=== PATIENT | male | born 1960 | race Caucasian/White ===

== ENCOUNTER → 2018-05-31 11:41 | Outpatient (CLI) | payer OTHER, SELFPAY ==
[2018-05-31 14:19] LABS: ALB/GLOB Ratio 1.1 RATIO (0.9-2.4); AST(SGOT) 28 U/L (15-37); Alanine Aminotransfer ALT/SGPT 35 U/L (16-61); Albumin, Serum 3.7 g/dL (3.2-5.0); Alkaline Phosphatase 71 U/L (45-117); Anion Gap 9 (5-15); BUN 14 mg/dL (7-18); BUN/Creat Ratio 18.9 RATIO (10-20); Calcium,Total 8.5 mg/dL (8.5-10.1); Chloride 104 mmol/L (98-107); Cholesterol 127 mg/dL (200); Creatinine, Serum 0.74 mg/dL (0.70-1.30); EST Glomerular Filtration Rate 116 mL/min (>60); Est Glom Filt Rate - Afr Amer 140 mL/min (>60); Globulin 3.5 g/dL (2.2-4.2); Glucose 110 mg/dL (74-106); High Density Lipoprotein 38 mg/dL; PSA,Total - Annual Screen 4.85 ng/mL (0.00-4.00); Potassium 3.7 mmol/L (3.5-5.1); Protein, Total 7.2 g/dL (6.4-8.2); Sodium Level 142 mmol/L (136-145); Triglycerides 80 mg/dL; Very Low Density Lipoprotein 16 mg/dL (5-40)
== END ==
PROVIDERS: Family Provider Family Medicine; PCP Family Medicine; Referring Provider Family Medicine; Visit Provider Family Medicine
DX: Z00.00 Encounter for general adult medical examination without abnormal findings (principal)
CPT/HCPCS: 36415; 80053; 80061; 84153; G0103

== ENCOUNTER → 2019-05-12 11:19 | Outpatient (CLI) | payer OTHER, SELFPAY ==
[2019-05-12 10:52] VITALS: BMI 48.5
[2019-05-12 12:41] LABS: Hematocrit 44.5 % (40-54); Hemoglobin 14.6 g/dL (13.0-16.5); Mean Corp Hgb Conc 32.8 g/dL (32-36); Mean Corpuscular Hgb 27.8 pg (27.0-32.0); Mean Corpuscular Volume 84.8 fL (80-94); Mean Platelet Vol. 9.3 fl (6.2-12.0); Platelet Count 203 K/mm3 (150-450); RBC Distribution Width CV 13.9 % (11.6-14.6); RBC Distribution Width SD 42.8 fl (35.1-43.9); Red Blood Count 5.25 M/mm3 (4.6-6.2); White Blood Count 7.3 K/mm3 (4.4-11.0)
[2019-05-12 13:17] LABS: ALB/GLOB Ratio 1.2 RATIO (0.9-2.4); AST(SGOT) 26 U/L (15-37); Alanine Aminotransfer ALT/SGPT 36 U/L (16-61); Albumin, Serum 3.9 g/dL (3.2-5.0); Alkaline Phosphatase 79 U/L (45-117); Anion Gap 7 (5-15); BUN 17 mg/dL (7-18); BUN/Creat Ratio 20.9 RATIO (10-20); Calcium,Total 8.8 mg/dL (8.5-10.1); Chloride 107 mmol/L (98-107); Cholesterol 121 mg/dL (200); Creatinine, Serum 0.81 mg/dL (0.70-1.30); EST Glomerular Filtration Rate 104 mL/min (>60); Est Glom Filt Rate - Afr Amer 125 mL/min (>60); Globulin 3.3 g/dL (2.2-4.2); Glucose 107 mg/dL (74-106); High Density Lipoprotein 42 mg/dL; Potassium 3.7 mmol/L (3.5-5.1); Protein, Total 7.2 g/dL (6.4-8.2); Sodium Level 143 mmol/L (136-145); Thyroid Stim Hormone (TSH) 4.87 uIU/mL (0.358-3.74); Triglycerides 68 mg/dL; Very Low Density Lipoprotein 14 mg/dL (5-40)
[2019-05-17 15:56] LABS: T4 Free Direct 0.99 ng/dL (0.76-1.46)
== END ==
PROVIDERS: Family Provider Family Medicine; PCP Family Medicine; Visit Provider Nurse Practitioner Family
DX: Z00.00 Encounter for general adult medical examination without abnormal findings (principal)
CPT/HCPCS: 36415; 80053; 80061; 84439; 84443; 85027

== ENCOUNTER → 2019-06-13 09:21 | Outpatient (CLI) | payer OTHER, SELFPAY ==
[2019-05-12 10:52] VITALS: BMI 48.5
[2019-06-13 12:30] LABS: PSA,Total - Annual Screen 5.69 ng/mL (0.00-4.00)
== END ==
PROVIDERS: Family Provider Family Medicine; PCP Family Medicine; Visit Provider Nurse Practitioner Family
DX: Z12.5 Encounter for screening for malignant neoplasm of prostate (principal)
CPT/HCPCS: 36415; 84153; G0103

== ENCOUNTER → 2020-06-07 14:04 | Outpatient (CLI) | payer OTHER, SELFPAY ==
[2020-06-07 13:13] VITALS: BMI 49.7
== END ==
PROVIDERS: PCP Family Medicine; Referring Provider Nurse Practitioner Family; Visit Provider Nurse Practitioner Family
DX: Z20.828 Contact with and (suspected) exposure to other viral communicable diseases (principal)
CPT/HCPCS: 36415

== ENCOUNTER → 2020-07-02 14:45 | Outpatient (CLI) | payer OTHER, SELFPAY ==
[2020-06-07 13:13] VITALS: BMI 49.7
--- NOTE | 2020-07-02 | IMM_PTH ---
PATIENT: KARTHIKEYAN MARTIN LOC: [facility] U#:[id number] AGE/SX: 64/M ROOM: RE07/02/[address]: Dr. Roscoe Garcia MD : 1960 BED: DIS: SPEC #: [id number] RECD: 07/05/20 11:38 STATUS: YEFRI REQ #: [id number] DEONNA: 07/02/20 00:[address]: Roscoe Garcia DEPT: IMMUNOHISTOCHEMISTRY RECD BY: Ifrah Alvarez ENTERED: 07/05/20 11:40 SP TYPE: IMMUNO OTHR DR: Dr. Shai Bell DO Tissues: A - PROSTATE RIGHT C - PROSTATE RIGHT D - PROSTATE LEFT F - PROSTATE LEFT Procedures: 34BE12 (add) P40 (add) 34BE12 (initial) PHYSICIAN & INSTITUTION [place] [id number] SPECIMEN INFORMATION: Tissue Source: A - Right apex, C - Right base, D - Left apex, F - Left base Clinical Info: Elevated PSA Specimen Number: [id number] A, C, D & F CPT code: 64060, 11384 x7 METHODOLOGY: Deparaffinized sections of prefer/formalin-fixed tissue or PAP/DQ stained slides are incubated with monoclonal/polyclonal antibodies/oligonucleotide probes. Localization is made via biotin free immunoperoxidase method. Appropriate controls are performed and reacted as expected. Results on target cell population are indicated in the following table: RESULTS: ANTIBODY / CLONE RESULT Block A P40 (BC28) negative 34BE12 (34BE12) negative Block C P40 (BC28) negative 34BE12 (34BE12) negative Block D P40 (BC28) negative 34BE12 (34BE12) negative Block F P40 (BC28) negative 34BE12 (34BE12) negative These tests were developed and their performance characteristics determined by [facility]. They may not have been cleared or approved by the U.[place]. Food and Drug Administration. The FDA has determined that such clearance or approval is not necessary. The above immunohistochemical/dualISH markers are ordered and reviewed by the Pathologist. INTERPRETATION: A. Right prostate, apex, core biopsy: Adenocarcinoma. C. Right prostate, base, core biopsy: Adenocarcinoma. D. Left prostate, apex, core biopsy: Adenocarcinoma. F. Left prostate, base, core biopsy: Adenocarcinoma. Focal atypical small acinar proliferation (SONDRA). SJ:len 07/08/20
--- NOTE | 2020-07-02 14:45 | PROSBIL_PTH ---
PATIENT: KARTHIKEYAN MARTIN LOC: [facility] U#:[id number] AGE/SX: 64/M ROOM: RE07/02/[address]: Dr. Roscoe Garcia MD : 1960 BED: DIS: SPEC #: [id number] RECD: 07/02/20 15:42 STATUS: YEFRI REAmy #: [id number] DEONNA: 07/02/20 14:[address]: Roscoe Garcia DEPT: SURGICAL PATHOLOGY RECD BY: Courtney Castaneda ENTERED: 07/03/20 06:59 SP TYPE: PROST BX KAITLIN DR: Dr. Shai Bell DO Tissues: A - PROSTATE RIGHT B - PROSTATE RIGHT C - PROSTATE RIGHT D - PROSTATE LEFT E - PROSTATE LEFT F - PROSTATE LEFT Procedures: PROSTATE BX HEADER OPERATION: Prostate biopsy PRE-OP DIAGNOSIS: Elevated PSA TISSUE SUBMITTED: A - Right apex, B - Right mid, C - Right base, D - Left apex, E - Left mid, F - Left base MICROSCOPIC DIAGNOSIS A. Right prostate, apex, core biopsy: Prostatic adenocarcinoma. [place] grade: 3+3=6 Number of cores involved: 1/2 Proportion of tissue involved: 10% Perineural invasion: Not identified. Greatest tumor length: 1 mm Focal high-grade prostatic intraepithelial neoplasia (HGPIN). See comment. B. Right prostate, mid, core biopsy: Prostatic adenocarcinoma. [place] grade: 5+4=9 Number of cores involved: 1/2 Proportion of tissue involved: ~15% Perineural invasion: Not identified. Greatest tumor length: 0.4 cm Focal high-grade prostatic intraepithelial neoplasia (HGPIN). C. Right prostate, base, core biopsy: A minute focus of prostatic adenocarcinoma. [place] grade: 4+5=9 Number of cores involved: 1/2 Proportion of tissue involved: <5% Perineural invasion: Not identified. Greatest tumor length: <0.1 cm Focal high-grade prostatic intraepithelial neoplasia (HGPIN). See comment. D. Left prostate, apex, core biopsy: Prostatic adenocarcinoma. [place] grade: 3+3=6 Number of cores involved: 1/1 Proportion of tissue involved: <5% Perineural invasion: Not identified. Greatest tumor length: <0.1 cm Focal high-grade prostatic intraepithelial neoplasia (HGPIN). See comment. E. Left prostate, mid, core biopsy: Prostatic tissue, negative for malignancy. F. Left prostate, base, core biopsy: Prostatic adenocarcinoma. [place] grade: 3+3=6 Number of cores involved: 1/2 Proportion of tissue involved: <5% Perineural invasion: Not identified. Greatest tumor length: 0.4 cm, discontinuous. Focal atypical small acinar proliferation (SONDRA). Focal high-grade prostatic intraepithelial neoplasia (HGPIN). See comment. SJ:len 07/05/20 COMMENT A, C, D & F - Immunohistochemistry ([id number]) supports the above diagnosis. MICROSCOPIC DESCRIPTION Slides are reviewed. GROSS DESCRIPTION A - Received is one container designated prostate, right apex. The specimen consists of two elongated fragments of light alonzo-white soft tissue measuring 0.3 and 0.4 cm in length and 0.1 cm in diameter. The specimen is totally submitted in one cassette. B - Received is one container designated prostate, right mid. The specimen consists of two elongated fragments of light alonzo-white soft tissue measuring 1.7 and 2 cm in length and 0.1 cm in diameter. The specimen is totally submitted in one cassette. C - Received is one container designated prostate, right base. The specimen consists of two elongated fragments of light alonzo-white soft tissue each measuring 1.3 cm in length and 0.1 cm in diameter. The specimen is totally submitted in one cassette. D - Received is one container designated prostate, left apex. The specimen consists of one elongated fragment of light alonzo-white soft tissue measuring 1.8 cm in length and 0.1 cm in diameter. The specimen is totally submitted in one cassette. E - Received is one container designated prostate, left mid. The specimen consists of two elongated fragments of light alonzo-white soft tissue measuring 0.8 and 1 cm in length and 0.1 cm in diameter. The specimen is totally submitted in one cassette. F - Received is one container designated prostate, left base. The specimen consists of two elongated fragments of light alonzo-white soft tissue measuring 1.4 and 1.5 cm in length and 0.1 cm in diameter. The specimen is totally submitted in one cassette. / JOCE:len 07/03/20 TC:0 CPT: 50734 x6
== END ==
PROVIDERS: PCP Family Medicine; Referring Provider Urology; Visit Provider Urology
DX: R97.20 Elevated prostate specific antigen [PSA] (principal)
CPT/HCPCS: 88305; 88341; 88342; G0416

== ENCOUNTER → 2020-07-12 07:16 | Outpatient (CLI) | payer OTHER, SELFPAY ==
[2020-06-07 13:13] VITALS: BMI 49.7
--- NOTE | 2020-07-12 07:18 | CT_ITS ---
STUDY: CT ABDOMEN AND PELVIS WITH CONTRAST REASON FOR EXAM: Male, 59 years old. Prostate cancer newly diagnosed, elevated PSA and frequency, biopsy 1 week ago with hematuria since. Hx hypertension. RADIATION DOSAGE (If Supplied By Facility): CTDIvol = ( 23.72 ) mGy, DLP = ( 1313.40 ) mGycm TECHNIQUE: Transaxial images were obtained from the dome of the diaphragm to the symphysis pubis without oral contrast. IV 100mL Isovue-370 was administered. Sagittal and coronal images were reconstructed. Individualized dose optimization techniques were used for this CT. COMPARISON: None. FINDINGS: Minimal bibasilar atelectasis. Coronary artery calcification. Prior CABG. Normal liver. Normal gallbladder and extrahepatic biliary system. Normal spleen. Normal pancreas. Normal bilateral adrenal glands. Normal right kidney. Normal left kidney. There is a small hiatal hernia. Normal small intestine. There are scattered colonic diverticula consistent with diverticulosis. The appendix is visualized and appears normal. There is scattered atherosclerotic calcification of the abdominal aorta, without a demonstrated aneurysm. Normal inferior vena cava. There is borderline retroperitoneal lymphadenopathy with enlarged nodes no greater than 10mm in the short axis diameter. The urinary bladder is only partially filled. Mild degree of gallbladder wall thickening. The prostate measures 4.4 cm x 5.8 cm. There is a small umbilical hernia containing fat. Small bilateral inguinal hernias containing fat. There are degenerative changes of the visualized lumbar spine. CT/Abdomen/Pelvis WITH Contrast IMPRESSION: Scattered sigmoid diverticula. Prostatic enlargement with indentation of the bladder base. Mild degree of bladder wall thickening. Scattered sigmoid diverticula. Electronically Signed: Tom Zazueta, at 8:54 EST , Service support ,
[2020-07-12 07:31] LABS: CREATININE FINGERSTICK 0.6 mg/dL (0.70-1.30)
== END ==
PROVIDERS: PCP Family Medicine; Referring Provider Urology; Visit Provider Urology
DX: C61 Malignant neoplasm of prostate (principal)
CPT/HCPCS: 74177; Q9967

== ENCOUNTER → 2020-07-15 07:37 | Outpatient (CLI) | payer OTHER, SELFPAY ==
[2020-06-07 13:13] VITALS: BMI 49.7
--- NOTE | 2020-07-15 07:39 | NM_ITS ---
CLINICAL: 51-year-old male with recent diagnosis of primary prostate carcinoma. WHOLE BODY 99m Tc MDP RADIONUCLIDE BONE SCINTIGRAPHY COMPARISON: CT of the abdomen-pelvis report 07/12/2020 FINDINGS: Following the intravenous administration of 26.0 mCi of 99m Tc MDP, whole body bone images reveal: 1. Increased radiopharmaceutical concentration is heterogeneously identified in the third-fifth lumbar vertebra posteriorly on the left and right, right posterior sacrum, the seventh thoracic vertebra posteriorly on the right, bilateral knees, left ankle, left midfoot, mid cervical spine posteriorly on the right, the acromioclavicular and sternoclavicular compartments of both shoulders, bilateral wrists and hands. 2. The remaining skeletal structures are scintigraphically unremarkable with normal-appearing renal images and urinary bladder activity identified. Facilitated uptake is noted in the left maxilla most consistent with periodontal disease and/or periostitis. NM/Bone Scan Whole Body IMPRESSION: 1. The increase in tracer concentration identified in the cervical, thoracic and lumbar spine, sacrum, right and left knees, left ankle, left midfoot, shoulders bilaterally, both wrists, right-left hands is most consistent with degenerative arthritis. 2. There is no definitive typical scintigraphic evidence of diffuse axial skeletal metastatic disease on the current examination. Electronically Signed: Norm Macias DO at 22:14 EST Tel , Service support ,
== END ==
PROVIDERS: PCP Family Medicine; Referring Provider Urology; Visit Provider Urology
DX: C61 Malignant neoplasm of prostate (principal)
CPT/HCPCS: 78306

== ENCOUNTER → 2020-08-27 09:10 | Outpatient (CLI) | payer OTHER, SELFPAY ==
[2020-06-07 13:13] VITALS: BMI 49.7
[2020-08-22 11:04] VITALS: BMI 48.6
[2020-08-27 13:23] LABS: T4 Free Direct 0.94 ng/dL (0.76-1.46); Thyroid Stim Hormone (TSH) 3.21 uIU/mL (0.358-3.74)
== END ==
PROVIDERS: PCP Family Medicine; Referring Provider Nurse Practitioner Family; Visit Provider Nurse Practitioner Family
DX: E03.9 Hypothyroidism, unspecified (principal)
CPT/HCPCS: 36415; 84439; 84443

== ENCOUNTER 2020-09-04 11:49 | Day surgery (SDC) | payer OTHER, SELFPAY ==
[2020-06-07 13:13] VITALS: BMI 49.7
[2020-08-22 11:04] VITALS: BMI 48.6
[2020-09-03 13:22] VITALS: BMI 48.6
--- NOTE | 2020-09-04 10:16 | PCM.HP.STD ---
History of Present Illness Date of Admission: 09/04/20 Chief Complaint: Prostate cancer The patient is a 59 year old male with prostate cancer high risk disease he is elected undergo radiation treatments plus hormone deprivation therapy. Past Medical History Past Medical History (Chronic Problems): Chronic Problems (Last Reviewed 09/03/20 @ 13:22 by Coty Lamb) High cholesterol (Chronic) High blood pressure (Chronic) Heart disease (Chronic) Seasonal allergies (Chronic) Medical History: Medical History (Last Reviewed 09/03/20 @ 13:22 by Coty Lamb) High cholesterol (Chronic) E78.00 High blood pressure (Chronic) I10 Heart disease (Chronic) I51.9 Seasonal allergies (Chronic) J30.2 Hypothyroid E03.9 Prostate cancer C61 Psoriasis L40.9 Allergies No Known Allergies Allergy (Verified 09/03/20 13:23) Home Medications: Ambulatory Orders Medication Instructions Recorded aspirin 81 mg tablet,delayed 81 mg PO DAILY 05/31/18 release isosorbide mononitrate 60 mg 60 mg PO QHS 05/31/18 tablet,extended release 24 hr nitroglycerin 0.4 mg sublingual 0.4 mg SUBLINGUAL Q5-15M PRN 05/31/18 tablet naproxen sodium 220 mg capsule 220 mg PO BID 05/12/19 metoprolol succinate 25 mg 12.5 mg PO BID #90 tab 11/01/19 tablet,extended release 24 hr simvastatin 20 mg tablet 20 mg PO QHS #90 tab 11/01/19 cyclobenzaprine 10 mg tablet 5 - 10 mg PO TID PRN #30 tab 06/07/20 Clobetasol Propionate [Temovate] 15 gm TP BID PRN 08/22/20 Hydrochlorothiazide [Hctz] 25 mg PO QHS 08/29/20 Levothyroxine Sodium [Synthroid] 25 mcg PO QHS 08/29/20 Prasugrel HCl 10 mg PO QHS 08/29/20 Surgical History: Surgical History (Last Reviewed 09/03/20 @ 13:22 by Coty Lamb) History of cardiac cath Z98.890 Stents - OCTOBER 2013 History of open heart surgery Z98.890 Bypass - 05/04/2011 Surgical History: no surgical history Smoking Status: Never smoker Tobacco Use: Non-smoker Review of Systems Constitutional: Denies: Chills, Fever, Weight Change HEENT: Denies: Head Aches, Sinus Congestion, Sinus Drainage Cardiovascular: Denies: Chest Pain, Palpitations Respiratory: Denies: Cough, Shortness of breath at rest, Sputum production Gastrointestinal: Denies: Abdominal Pain, Nausea, Vomiting Genitourinary: Denies: Dysuria Musculoskeletal: Denies: Joint Pain, Joint Tenderness Skin: Denies: Rash, Wounds Neurological: Denies: Numbness, Tingling, Focal weakness Psychiatric: Denies: Anxiety, Depression, Homicidal Ideations, Suicidal Ideations Hematologic/ Lymphatic: Denies: Easy Bruising, Easy Bleeding VTE Information - Inpt Only VTE Present on Admission: No - Physical Exam Vitals/I&O's: Body Mass Index (BMI) 49.7 General: Alert, Oriented x3, Cooperative HEENT: Atraumatic, PERRLA, EOMI, Normocephalic Neck: Supple, No JVD, Negative Carotid Bruits Lungs: Clear to auscultation, Normal air movement Cardiovascular: Regular rate, No murmurs Abdomen: Bowel Sounds Present, Soft, Non Tender Extremities: No edema, Capillary Refill Less than 3 Seconds Skin: No rashes, No breakdown Musculoskeletal: No Tenderness to Palpation of Joints or Extremities Neurological: Cranial nerves II-XII grossly intact Psych/Mental Status: Normal Affect, Appropriate Microbiology Past 72 Hours 09/03/20 09:03 Interface Orders SARS-CoV-2 Antigen (Rapid) - Final Current Medications Cefazolin Sodium 2 gm/ Sodium (Chloride) 110 mls @ 150 mls/hr IV PREOP ONE Stop: 09/04/20 14:43 Assessment/Plan 59-year-old male with prostate cancer, plan the place gold markers for radiation treatment and also spacer organ at risk gel matrix to protect the rectum during radiation.
--- NOTE | 2020-09-04 10:17 | DCINST_ITS ---
Discharge Diet: No Restrictions Discharge Activity: Return to Normal Activity, May Not Drive - for 2 days. Allergies/Adverse Reactions: Allergies No Known Allergies Allergy (Verified 09/03/20 13:23) Medications to take at Discharge aspirin 81 mg tablet,delayed release 81 mg PO DAILY 05/31/18 isosorbide mononitrate 60 mg tablet,extended release 24 hr 60 mg PO QHS 05/31/18 nitroglycerin 0.4 mg sublingual tablet 0.4 mg SUBLINGUAL Q5-15M PRN 05/31/18 naproxen sodium 220 mg capsule 220 mg PO BID 05/12/19 metoprolol succinate 25 mg tablet,extended release 24 hr 12.5 mg PO BID #90 tab 11/01/19 simvastatin 20 mg tablet 20 mg PO QHS #90 tab 11/01/19 cyclobenzaprine 10 mg tablet 5 - 10 mg PO TID PRN #30 tab 06/07/20 Clobetasol Propionate [Temovate] 15 gm TP BID PRN 08/22/20 Hydrochlorothiazide [Hctz] 25 mg PO QHS 08/29/20 Levothyroxine Sodium [Synthroid] 25 mcg PO QHS 08/29/20 Prasugrel HCl 10 mg PO QHS 08/29/20 Primary Care Physician: Shai Bell DO [Primary Care Provider] - Test Results: Test results from this visit will be discussed in further detail at your follow- up appointment, if applicable. Please Follow Up With: Roscoe Garcia MD When: in 2 weeks, please call to make an appointment.
[2020-09-04 12:24] VITALS: BP 109/81; PULSE 79; RESP 16; TEMP 37.4; O2SAT 94; BMI 47.9
[2020-09-04] MEDS: Lactated Ringers 1,000 ML 75 ML IV (12:32)
--- NOTE | 2020-09-04 13:20 | EKG12_ITS ---
Test Reason : PREOP Blood Pressure : / mmHG Vent. Rate : 070 BPM Atrial Rate : 070 BPM P-R Int : 224 ms QRS Dur : 122 ms QT Int : 422 ms P-R-T Axes : 007 032 031 degrees QTc Int : 455 ms Sinus rhythm with 1st degree A-V block Otherwise normal ECG No previous ECGs available Confirmed by DARBY DIEGO, VIOLA ([id number]), industrial editor RAJENDRA PEREZ ([id number]) on 09/10/2020 8:49:12 AM Referred By: Roscoe Garcia Confirmed By:VIOLA PASTOR MD
--- NOTE | 2020-09-04 14:33 | OP.PCM_ITS ---
Report of Operation Date of Procedure: 09/04/20 Pre-Operative Diagnosis: Prostate cancer Post-Operative Diagnosis: Same Surgery/Procedure Performed:: Insertion of gold markers of the prostate. Placement of spacer organ residual matrix Description of Surgical Findings:: Patient was taken back to the operating room, after induction of anesthesia, he was placed in dorsolithotomy position. The patient had a bowel prep preoperatively. He was given IV antibiotics preoperatively. He underwent a timeout procedure. He was marked and the procedure was reviewed with the operating room staff. Once he was in dorsolithotomy position. The genitals and perineum were prepped and draped in the usual sterile fashion. I then introduced a biplanar ultrasound probe into the rectum and performed ultrasonography on the prostate. The prostate seminal vesicles, the base, the mid prostate, the apex were identified. The Denonvilliers' fascia was also identified. I first advanced the first marker in the patient's right side to the mid prostate and deployed the first semiconductor wafers marker. The second semiconductor wafers marker was then advanced under ultrasound guidance to the patient's left mid prostate . And finally the third semiconductor wafers marker was advanced of the prostate left apex and deployed under ultrasound guidance. All 3 markers were confirmed to be present within the prostate on ultrasonography. I then introduced a biplanar ultrasound probe into the rectum and performed ultrasonography and identified the Denonvilliers' fascia the prostate mid base and apex and seminal vesicles. The spacer gel mix was then prepared on the back table per manufactures instruction. Under ultrasound guidance in the midline perineum a bevel needle down we advanced through the perineum below the prostate into the space of Denonvilliers' fascia. This space which could be identified by ultrasound with a bright white layer between the prostate and the rectum. I then injected a puff of normal saline to identify the space further. After I confirmed that the needle was in the correct space in the mid prostate and the space of Denonvilliers' fascia between the rectum and the prostate. Then over the course of 15 seconds the gel matrix was injected slowly there was nice separation between the prostate and the rectum at the gel matrix was injected. The position of the gel matrix was confirmed by ultrasound. Then the injection needle was removed intact. Patient's perineum was cleaned patient was taken out of stirrups and then taken back to the PACU in good condition. Type of Anesthesia:: General
[2020-09-04 14:42] VITALS: BP 109/81; BP 111/62; PULSE 71; RESP 16; TEMP 36.4; O2SAT 95
[2020-09-04 15:00] VITALS: BP 109/81; BP 130/89; PULSE 67; RESP 16; O2SAT 100
[2020-09-04 15:07] VITALS: BP 109/81; BP 137/90; PULSE 69; RESP 16; TEMP 36.3; O2SAT 100
[2020-09-04 15:36] VITALS: BP 109/81
== END 2020-09-04 15:49 | disposition home or self-care (01) ==
LOC: SDC 11:49 → AC 11:50
PROVIDERS: PCP Family Medicine; Referring Provider Urology; Visit Provider Urology
PROC: (CPT 55874; principal; 2020-09-04 14:20)
DX: C61 Malignant neoplasm of prostate (principal); Z20.828 Contact with and (suspected) exposure to other viral communicable diseases; E78.00 Pure hypercholesterolemia, unspecified; E03.9 Hypothyroidism, unspecified; I10 Essential (primary) hypertension; I51.9 Heart disease, unspecified; Z79.82 Long term (current) use of aspirin; Z79.899 Other long term (current) drug therapy
CPT/HCPCS: 55874; 55876; 87426; 93005; C9803; J7120; J2405

== ENCOUNTER 2020-09-11 09:28 | Day surgery (SDC) | payer OTHER, SELFPAY ==
[2020-08-22 11:04] VITALS: BMI 48.6
--- NOTE | 2020-09-11 | COLBX_PTH ---
PATIENT: KARTHIKEYAN MARTIN LOC: [facility] U#:[id number] AGE/SX: 59/M ROOM: RE09/11/[address]: Dr. Last Grijalva MD : 1960 BED: DIS: 09/11/2020 SPEC #: [id number] RECD: 09/11/20 13:02 STATUS: YEFRI DAYO #: [id number] DEONNA: 09/11/20 00:[address]: Last Grijalva DEPT: SURGICAL PATHOLOGY RECD BY: Cisco Barry ENTERED: 09/12/20 12:33 SP TYPE: COLON BX OTHR DR: Dr. Shai Bell, DO Tissues: Descending colon Procedures: Surgery Specimen Level IV HEADER OPERATION: Colonoscopy (MAC) PRE-OP DIAGNOSIS: Rectal bleeding TISSUE SUBMITTED: Descending colon polyp MICROSCOPIC DIAGNOSIS Descending colon polyp, biopsy: Tubular adenoma. Fragments of fecal material. AM:len 09/13/2020 MICROSCOPIC DESCRIPTION Slides are reviewed. GROSS DESCRIPTION Received in fixative is one container labeled with the patient's name and designated descending colon polyp. The specimen consists of multiple irregular fragments of light alonzo soft tissue that in aggregate measure 0.7 x 0.5 x 0.1 cm. The specimen is totally submitted in one cassette. / AM:len 09/12/20 TC:1 CPT: 70698
--- NOTE | 2020-09-11 06:55 | HP_ITS ---
Intake Vital Signs 09/03/20 Height 5 ft 8 in 09/03/20 Weight: 320 lb 09/03/20 BP 145/85 H 09/03/20 Blood Pressure Location Rt brachial 09/03/20 Position Sitting 09/03/20 Respiration 20 H 09/03/20 Pulse 80 09/03/20 Pulse Source Monitor 09/03/20 Temp 98.1 F 09/03/20 Temp Source Temporal 09/03/20 Pulse Oximetry (%) 94 09/03/20 Oxygen Delivery Method room air Intake Visit Reasons: C-Scope Rectal Bleeding & Family History Chief Complaint: c-scope consult Security System Technician Required: No Is patient in pain?: No Allergies No Known Allergies Allergy (Verified 09/03/20 13:23) Medications aspirin 81 mg tablet,delayed release 81 mg PO DAILY 05/31/18 [History Confirmed 09/03/20] isosorbide mononitrate 60 mg tablet,extended release 24 hr 60 mg PO QHS 05/31/18 [History Confirmed 09/03/20] nitroglycerin 0.4 mg sublingual tablet 0.4 mg SUBLINGUAL Q5-15M PRN 05/31/18 [History Confirmed 09/03/20] naproxen sodium 220 mg capsule 220 mg PO BID 05/12/19 [History Confirmed 09/03/20] metoprolol succinate 25 mg tablet,extended release 24 hr 12.5 mg PO BID #90 tab 11/01/19 [Rx Confirmed 09/03/20] simvastatin 20 mg tablet 20 mg PO QHS #90 tab 11/01/19 [Rx Confirmed 09/03/20] cyclobenzaprine 10 mg tablet 5 - 10 mg PO TID PRN #30 tab 06/07/20 [Rx Confirmed 09/03/20] Clobetasol Propionate [Temovate] 15 gm TP BID PRN 08/22/20 [History Confirmed 09/03/20] Hydrochlorothiazide [Hctz] 25 mg PO QHS 08/29/20 [History Confirmed 09/03/20] Levothyroxine Sodium [Synthroid] 25 mcg PO QHS 08/29/20 [History Confirmed 09/03/20] Prasugrel HCl 10 mg PO QHS 08/29/20 [History Confirmed 09/03/20] [facility] Medical History High cholesterol (Chronic) High blood pressure (Chronic) Heart disease (Chronic) Seasonal allergies (Chronic) Hypothyroid (Acute) Prostate cancer (Acute) Psoriasis (Acute) Surgical History History of cardiac cath (Acute) History of open heart surgery (Acute) Family History Mother Colon cancer Heart disease Hypertension Father Prostate cancer High cholesterol CVA (cerebral vascular accident) Social History (Updated 09/04/20 @ 07:[address] Last Grijalva MD) Smoking Status: Never smoker alcohol intake: never substance use type: does not use what type of physical activity do you participate in: none HPI HPI HPI: KARTHIKEYAN MARTIN, is a 59 M who presents to the office today for HPI HPI Surgical H&P: Yes HPI: KARTHIKEYAN MARTIN, is a 59 M who presents to the office today for Rectal bleeding. The patient is undergoing bead placement for radiation for prostate cancer. Radiation oncology requested colonoscopy before radiation was to ensue. The patient had his last colonoscopy in 2016 which was normal. Patient is having rectal bleeding when he wipes and says there is a lot of bright red blood. Patient does have a family history of colon cancer. ROS General General: Yes fatigue; no weight change, appetite, colon cancer, breast cancer or weakness HEENT HEENT: No difficulty swallowing, eye injury, eye surgery, swollen glands or hoarseness Endo Endocrine: Yes thyroid disease; no diabetes mellitus, thyroid cancer, Hair loss, heat intolerance or cold intolerance Skin Skin: Yes rash; no changing moles Breast Breast: No left breast lump, right breast lump, nipple discharge, breast pain, abnormal mammogram, abnormal US or breast enlargement Musc Musculoskeletal: Yes back problems and arthritis; no rheumatoid arthritis, gout or joint pain Cardio Cardiovascular: Yes murmur, heart disease, high blood pressure and heart stent; no pacemaker, atrial fibrillation, heart attack, palpitations, shortness of breat with exertion or chest pain Psych Psychiatric: No depression, anxiety or hearing voices Resp Respiratory: No shortness of breath, Yes sleep apnea, No cough, No COPD, No asthma, No emphysema, No wheezing Gastro Gastrointestinal: No abdominal pain, No nausea or vomiting, No diarrhea, Yes constipation, Yes blood in stool, No acid reflux, No hemorrhoids, No ulcers, No gallbladder problem, No black,tarry stools Javon Hematologic: Yes blood thinners, No blood disorders, No bleeding, No anemia, No blood clots Neuro Neurologic: No system reviewed and no additional complaints, except as docu, No as per HPI, No abnormal walking, No abnormal hearing, No abnormal movements, No abnormal speech, No behavioral changes, No burning sensations, No confusion, No seizure-like activity, No unsteadiness, No dizziness, No localized weakness, No frequent falls, No headache(s), No lack of coordination, No loss of vision, No memory loss, No numbness, No other visual disturbances, No radiating pain, No restless legs, No sensory deficit, No fainting, No tingling, No tremor(s), No weakness, No other Exam Const General: cooperative Orientation: alert, oriented x3 Chest Breast Palpation: No nipple discharge Resp Effort & Inspection: normal respiratory effort Auscultation: clear to auscultation bilaterally Cardio Rate: regular rate Rhythm: regular rhythm Heart Sounds: murmur GI Inspection: non-distended Palpation: soft, nontender Assessment & Plan Problems 1. Rectal bleeding K62.5 Plan The patient is having rectal bleeding especially when wiping. Patient requests his colonoscopy before starting radiation. I will plan for diagnostic colonoscopy. I have asked the patient to stop his blood thinners 2 days before surgery. I explained endoscopy in detail to the patient. I explained the risks including but not limited to stroke or heart attack with anesthesia, perforation of the GI tract, bleeding, infection. I explained that any of these could necessitate further emergency surgery. The patient understands and all questions were answered sufficiently. The patient wishes to proceed with procedure. Last Grijalva MD Pager: [facility] [address] [place] [address], [address] [place] [address] Office: Orders Orders: Colonoscopy Today K62.5 I have re-examined the patient. There are no clinical changes since date of exam.
[2020-09-11 10:19] VITALS: BP 128/84; PULSE 67; RESP 16; TEMP 36.8; O2SAT 94; BMI 47.9
[2020-09-11] MEDS: Lactated Ringers 1,000 ML 100 ML IV (10:23)
[2020-09-11 11:00] VITALS: BP 113/89; BP 128/84; PULSE 60; RESP 16; TEMP 36.3; O2SAT 94
[2020-09-11 11:05] VITALS: BP 114/68; BP 128/84; PULSE 63; RESP 16; O2SAT 95
--- NOTE | 2020-09-11 11:06 | OP.CCLET_ITS ---
09/11/2020 Shai Bell Re : Colonoscopy procedure for Ba Tompkins Dear Dr. Bell This procedure was performed on Friday, September 11, 2020. My impressions and recommendations are as follows: Impressions : - One small polyp in the descending colon, removed with a hot snare. Resected and retrieved. - The examination was otherwise normal on direct and retroflexion views. - Non-bleeding internal hemorrhoids. Recommendations : - Discharge patient to home. - Resume previous diet. - Continue present medications. - Await pathology results. - Repeat colonoscopy in 5 years for surveillance. My findings are described in the full procedure note, which is enclosed. If I can be of further assistance, please feel free to contact me at Doctor phone number(s): , Work: . Sincerely, Last Grijalva MD 09/11/2020 11:05:58 AM This report has been signed electronically.
--- NOTE | 2020-09-11 11:06 | OP.COLON_ITS ---
Patient Name: Ba Tompkins Procedure Date: 09/11/2020 10:21 AM Date of : 1960 Age: 59 Procedure: Colonoscopy Indications: Rectal bleeding Providers: Last Grijalva MD Referring MD: Shai Bell Medicines: Monitored Anesthesia Care Patient Profile: This is a 59 year old male. Refer to note in patient chart for documentation of history and physical. Last Colonoscopy: several years ago. Complications: No immediate complications. Estimated blood loss: Minimal. Procedure: Pre-Anesthesia Assessment: - Prior to the procedure, a History and Physical was performed, and patient medications and allergies were reviewed. The patient's tolerance of previous anesthesia was also reviewed. The risks and benefits of the procedure and the sedation options and risks were discussed with the patient. All questions were answered, and informed consent was obtained. Prior Anticoagulants: The patient has taken no previous anticoagulant or antiplatelet agents. After reviewing the risks and benefits, the patient was deemed in satisfactory condition to undergo the procedure. After I obtained informed consent, the scope was passed under direct vision. Throughout the procedure, the patient's blood pressure, pulse, and oxygen saturations were monitored continuously. The Colonoscope was introduced through the anus and advanced to the cecum, identified by appendiceal orifice and ileocecal valve. The colonoscopy was performed without difficulty. The patient tolerated the procedure well. The quality of the bowel preparation was good. Scope In: 10:42:48 AM Scope Withdrawal Time 0 hours 8 minutes 35 seconds Scope Out: 10:55:35 AM Total Procedure Duration Time 0 hours 12 minutes 47 seconds Findings: A small polyp was found in the descending colon. The polyp was removed with a hot snare. Resection and retrieval were complete. The exam was otherwise without abnormality on direct and retroflexion views. Non-bleeding internal hemorrhoids were found during retroflexion. The hemorrhoids were mild and Grade I (internal hemorrhoids that do not prolapse). Impression: - One small polyp in the descending colon, removed with a hot snare. Resected and retrieved. - The examination was otherwise normal on direct and retroflexion views. - Non-bleeding internal hemorrhoids. Recommendation: - Discharge patient to home. - Resume previous diet. - Continue present medications. - Await pathology results. - Repeat colonoscopy in 5 years for surveillance. Procedure Code(s): --- Professional --- 72692, Colonoscopy, flexible; with removal of tumor(s), polyp(s), or other lesion(s) by snare technique Diagnosis Code(s): --- Professional --- D12.4, Benign neoplasm of descending colon K64.0, First degree hemorrhoids K62.5, Hemorrhage of anus and rectum CPT copyright 2017 [employer]. All rights reserved. The codes documented in this report are preliminary and upon asphalt tile floor layer review may be revised to meet current compliance requirements. Last Grijalva MD 09/11/2020 11:05:58 AM This report has been signed electronically. Number of Addenda: 0 Note Initiated On: 09/11/2020 10:21 AM
[2020-09-11 11:10] VITALS: BP 114/65; BP 128/84; PULSE 66; RESP 16; O2SAT 93
[2020-09-11 11:15] VITALS: BP 110/65; BP 128/84; PULSE 66; RESP 16; TEMP 36.7; O2SAT 96
[2020-09-11 11:42] VITALS: BP 128/84
== END 2020-09-11 11:54 | disposition home or self-care (01) ==
LOC: EN 09:29 → AC 09:29
PROVIDERS: PCP Family Medicine; Referring Provider Family Medicine; Visit Provider Surgery
PROC: 0DJD8ZZ Inspection of Lower Intestinal Tract, Via Natural or Artificial Opening Endoscopic (ICD-10-PCS; CPT 45378; principal; 2020-09-11 10:40)
DX: K62.5 Hemorrhage of anus and rectum (principal); D12.4 Benign neoplasm of descending colon; K64.0 First degree hemorrhoids; I10 Essential (primary) hypertension; E78.00 Pure hypercholesterolemia, unspecified; E03.9 Hypothyroidism, unspecified; I51.9 Heart disease, unspecified; L40.9 Psoriasis, unspecified; Z79.82 Long term (current) use of aspirin; Z79.899 Other long term (current) drug therapy; Z85.46 Personal history of malignant neoplasm of prostate; G47.30 Sleep apnea, unspecified
CPT/HCPCS: 45385; 88305; J7120

== ENCOUNTER → 2020-09-13 06:13 | Outpatient (CLI) | payer OTHER, SELFPAY ==
[2020-08-22 11:04] VITALS: BMI 48.6
[2020-09-04 12:24] VITALS: BMI 47.9
[2020-09-11 10:19] VITALS: BMI 47.9
--- NOTE | 2020-09-13 06:00 | RAD_ITS ---
STUDY: X-RAY - ORBITS REASON FOR EXAM: Male, 59 years old. CLEARANCE FOR MRI TECHNIQUE: 2 view(s) of the orbits were obtained. COMPARISON: None. FINDINGS: Normal radiographic appearance of the bilateral orbits without a metallic orbital foreign body. Dental amalgams are present. There is no displaced facial bone fractures identified. No air-fluid levels within the visualized paranasal sinuses. RAD/Orbits for Foreign Body IMPRESSION: No demonstrated metallic orbital foreign body. No displaced facial bone fracture identified. Electronically Signed: Trevin Montana MD at 6:58 EST Tel , Service support ,
--- NOTE | 2020-09-13 06:15 | MRI_ITS ---
STUDY: MR PELVIS WITHOUT CONTRAST REASON FOR EXAM: Male, 59 years old. treatment planning, PROSTATE CA TECHNIQUE: Standardized fat and water weighted pulse sequences were obtained in all 3 orthogonal planes. COMPARISON: None. FINDINGS: This is a focus dedicated treatment planning scan with limited diagnostic information. There is a spacer between the rectum and prostate. Bladder is decompressed and suboptimally evaluated. Lower pelvic lymph nodes are normal. Perirectal space is clear. MRI/Pelvis (Routine) IMPRESSION: Treatment planning scan. Electronically Signed: Lee Ann Mena MD at 16:15 EST Tel , Service support ,
--- NOTE | 2020-09-13 07:01 | RAD_ITS ---
STUDY: X-RAY CHEST REASON FOR EXAM: Male, 59 years old. Pt. is here for an MRI, states that he had open heart in 2010, at that time they put in a small pacemaker and says he thought they left leads in, stents 2013 TECHNIQUE: Single AP portable view of the chest. COMPARISON: None. FINDINGS: The lungs are clear and expanded. There is no demonstrated pleural abnormality. Sternal cerclage wires and vascular clips are present from a prior sternotomy and coronary artery bypass graft procedure (CABG). Linear metallic wire is seen overlying the left infrahilar region and left medial lung base suggestive of possible leads from a prior pericardial pacemaker. No pacing device is seen. Normal mediastinum and megan. Normal visualized pulmonary arteries. Normal visualized aortic arch and descending thoracic aorta. There are diffuse degenerative changes of the visualized thoracic spine. Normal visualized ribs, clavicles, and shoulders. There is no demonstrated abnormality of the visualized soft tissue structures of the upper abdomen. RAD/Chest 1 View IMPRESSION: Status post CABG. Findings suggestive of residual pacemaker wires as described. No pacemaker device is seen. Electronically Signed: Tom Zazueta MD at 8:06 EST , Service support ,
== END ==
PROVIDERS: PCP Family Medicine; Referring Provider Student in an Organized Health Care Education/Training Program; Visit Provider Student in an Organized Health Care Education/Training Program
DX: C61 Malignant neoplasm of prostate (principal)
CPT/HCPCS: 70030; 71045; 72195

== ENCOUNTER → 2020-11-01 08:47 | Outpatient (CLI) | payer OTHER, SELFPAY ==
[2020-10-31 13:03] VITALS: BMI 48.6; BMI 49.0
--- NOTE | 2020-11-01 08:53 | RAD_ITS ---
STUDY: X-RAY - RIGHT SHOULDER REASON FOR EXAM: Right shoulder pain, no specific injury. TECHNIQUE: 4 view(s) of the shoulder. COMPARISON: None. FINDINGS: Normal glenohumeral articulation. There are small marginal osteophytes of the acromioclavicular joint. Normal acromion. Normal humeral head and visualized proximal humerus. There is calcific tendinitis. Normal visualized pulmonary apex. RAD/Shoulder min 2 Views IMPRESSION: Calcific tendinitis. Mild acromioclavicular arthrosis. Electronically Signed: Neftali Dubon MD at 13:09 EDT Tel , Service support ,
== END ==
PROVIDERS: PCP Family Medicine; Referring Provider Nurse Practitioner Family; Visit Provider Nurse Practitioner Family
DX: M25.511 Pain in right shoulder (principal)
CPT/HCPCS: 73030

== ENCOUNTER → 2021-04-23 08:02 | Outpatient (CLI) | payer OTHER, SELFPAY ==
[2020-11-25 08:33] VITALS: BMI 49.3
[2021-04-23 10:55] LABS: Absolute Lymphocyte Count 0.82 X10^3/uL (0.83-4.51); Absolute Neutrophil Count 4.5 X10^3/uL (2.0-7.7); Basophil# 0.03 X10^3/uL; Basophil% 0.5 % (0-1); Eosinophil# 0.15 X10^3/uL; Eosinophils% 2.5 % (0-5); Hematocrit 42.5 % (40-54); Hemoglobin 13.5 g/dL (13.0-16.5); Lymphocyte # 0.82 X10^3/ul (0.83-4.51); Lymphocyte % 13.5 % (19-41); Mean Corp Hgb Conc 31.8 g/dL (32-36); Mean Corpuscular Hgb 27.4 pg (27.0-32.0); Mean Corpuscular Volume 86.2 fL (80-94); Mean Platelet Vol. 9.2 fl (6.2-12.0); Monocyte# 0.57 X10^3/uL; Monocyte% 9.4 % (0-10); NRBC Flagged by Analyzer 0 % (0-5); Neutrophil # 4.49 X10^3/uL (2.7-7.7); Neutrophil % 73.8 % (47-70); Platelet Count 235 K/mm3 (150-450); Red Blood Count 4.93 M/mm3 (4.6-6.2); White Blood Count 6.1 K/mm3 (4.4-11.0)
[2021-04-23 11:15] LABS: PSA,Total- Diagnostic 0.06 ng/mL (0.0-4.0)
[2021-04-23 11:30] LABS: AST(SGOT) 23 U/L (15-37); Alanine Aminotransfer ALT/SGPT 36 U/L (16-61); Albumin, Serum 3.6 g/dL (3.2-5.0); Alkaline Phosphatase 84 U/L (45-117); Anion Gap 7 (5-15); BUN 17 mg/dL (7-18); BUN/Creat Ratio 22.7 RATIO (10-20); Calcium,Total 9.2 mg/dL (8.5-10.1); Chloride 107 mmol/L (98-107); Cholesterol 140 mg/dL (200); Creatinine, Serum 0.75 mg/dL (0.70-1.30); EST Glomerular Filtration Rate 113 mL/min (>60); Est Glom Filt Rate - Afr Amer 137 mL/min (>60); Globulin 3.6 g/dL (2.2-4.2); Glucose 96 mg/dL (74-106); High Density Lipoprotein 44 mg/dL; Potassium 4.7 mmol/L (3.5-5.1); Protein, Total 7.2 g/dL (6.4-8.2); Sodium Level 142 mmol/L (136-145); Thyroid Stim Hormone (TSH) 3.85 uIU/mL (0.358-3.74); Triglycerides 140 mg/dL; Very Low Density Lipoprotein 28 mg/dL (5-40)
[2021-04-23 12:18] LABS: Hemoglobin A1c 6.4 % (3.8-5.6)
[2021-04-24 15:59] LABS: PSA, Total <0.1 ng/mL (0.0-4.0)
== END ==
PROVIDERS: Nurse Practitioner Family; Student in an Organized Health Care Education/Training Program; PCP Family Medicine; Referring Provider Urology; Visit Provider Urology
DX: Z00.00 Encounter for general adult medical examination without abnormal findings (principal); C61 Malignant neoplasm of prostate
CPT/HCPCS: 36415; 80053; 80061; 83036; 84153; 84443; 85025

== ENCOUNTER → 2021-07-25 09:44 | Outpatient (CLI) | payer OTHER, SELFPAY ==
[2020-11-25 08:33] VITALS: BMI 49.3
[2021-07-25 12:53] LABS: Thyroid Stim Hormone (TSH) 2.22 uIU/mL (0.358-3.74)
== END ==
PROVIDERS: PCP Family Medicine; Visit Provider Nurse Practitioner Family
DX: E11.9 Type 2 diabetes mellitus without complications (principal); E03.9 Hypothyroidism, unspecified
CPT/HCPCS: 36415; 83036; 84443

== ENCOUNTER 2021-09-16 11:00 | Outpatient (CLI) | payer OTHER, SELFPAY ==
[2020-11-25 08:33] VITALS: BMI 49.3
[2021-09-16 13:01] LABS: PSA,Total- Diagnostic < 0.01 ng/mL (0.0-4.0)
== END 2021-09-16 23:59 | disposition home or self-care (01) ==
LOC: BIMLAB 11:01
PROVIDERS: PCP Family Medicine; Referring Provider Urology; Visit Provider Urology
DX: C61 Malignant neoplasm of prostate (principal)
CPT/HCPCS: 36415; 84153

== ENCOUNTER → 2022-05-01 | Outpatient (CLI) | payer OTHER, SELFPAY ==
[2020-11-25 08:33] VITALS: BMI 49.3
== END | disposition home or self-care (01) ==
LOC: BIMLAB 07:59
PROVIDERS: PCP Family Medicine; Referring Provider Nurse Practitioner Family; Visit Provider Nurse Practitioner Family
DX: Z00.00 Encounter for general adult medical examination without abnormal findings (principal)
CPT/HCPCS: 36415

== ENCOUNTER → 2022-06-03 | Outpatient (CLI) | payer OTHER, SELFPAY ==
[2020-11-25 08:33] VITALS: BMI 49.3
--- NOTE | 2022-06-03 13:36 | ECHOCS_ITS ---
Reason For Study: S/P CABG Procedure This was a 2D Doppler, Color Flow transthoracic echocardiogram. The study was technically difficult. Contrast injection was performed. Exam performed in department. Left Ventricle Normal LV size. Mild concentric left ventricular hypertrophy. Left ventricular systolic function is normal. The estimated ejection fraction is 55 %. Stage 2 diastolic dysfunction. No regional wall motion abnormalities noted. Right Ventricle Normal RV size. Normal systolic function. Atria Normal left atrium. Normal right atrium. Mitral Valve Normal mitral valve. Tricuspid Valve Normal tricuspid valve. Aortic Valve Trisinus/trileaflet aortic valve. Pulmonic Valve The pulmonic valve is not well visualized. Great Vessels Mildly dilated aortic root. The pulmonary artery is normal size. Normal inferior vena cava. Pericardium/Pleural No pericardial effusion. Medication 22 gauge I.V. with prn adaptor inserted into right arm. Diluted definity 2ml given slow IV push to enhance endocardial definition. MMode/2D Measurements & Calculations LVIDd: 4.4 cm IVSd: 1.5 cm Ao root diam: 4.3 cm LVIDs: 2.0 cm LVPWd: 1.3 cm FS: 54.9 % LAV(MOD-sp4): 58.9 ml LVAd ap4: 42.0 cm2 SV(MOD-sp4): 79.9 ml LVLd ap4: 9.4 cm EDV(MOD-sp4): 154.3 ml EDV(sp4-el): 159.0 ml LVAs ap4: 27.5 cm2 LVLs ap4: 8.4 cm ESV(MOD-sp4): 74.4 ml ESV(sp4-el): 76.6 ml EF(MOD-sp4): 51.8 % EF(sp4-el): 51.8 % SV(sp4-el): 82.4 ml LA A4 area: 19.0 cm2 LA dimension(2D): 4.7 cm RA A4 area: 14.4 cm2 Time Measurements MV dec time: 0.16 sec Doppler Measurements & Calculations MV E max mack: 85.8 cm/sec Lat Peak E' Mack: 11.0 cm/sec Med Peak E' Mack: 9.0 cm/sec MV A max mack: 53.2 cm/sec E/E' lat: 7.8 E/E' med: 9.5 MV E/A: 1.6 MV V2 max: 83.9 cm/sec MV dec slope: 526.7 cm/sec2 Ao V2 max: 127.8 cm/sec MV max P.8 mmHg Ao max P.5 mmHg MV V2 mean: 42.4 cm/sec Ao V2 mean: 92.3 cm/sec MV mean P.88 mmHg Ao mean P.9 mmHg MV V2 VTI: 24.8 cm Ao V2 VTI: 27.2 cm LV V1 max: 94.8 cm/sec PA V2 max: 103.5 cm/sec LV V1 max P.6 mmHg PA V2 mean: 68.9 cm/sec LV V1 mean P.7 mmHg LV V1 mean: 60.4 cm/sec LV V1 VTI: 17.9 cm ECHO/Echo Complete W/ Contrast Interpretation Summary Normal LV size. Left ventricular systolic function is normal. The estimated ejection fraction is 55 %. Mildly dilated aortic root. Stage 2 diastolic dysfunction. Mild concentric left ventricular hypertrophy. Contrast injection was performed. Ordering Physician: Lorne Chavez Referring Physician: Lorne Chavez Performed By: Briana Galloway RCS
== END | disposition home or self-care (01) ==
PROVIDERS: PCP Family Medicine; Referring Provider Internal Medicine Cardiovascular Disease; Visit Provider Internal Medicine Cardiovascular Disease
DX: Z95.1 Presence of aortocoronary bypass graft (principal)
CPT/HCPCS: 93306; Q9957; A4216; C8929

== ENCOUNTER → 2022-06-19 | Outpatient (CLI) | payer OTHER, SELFPAY ==
[2020-11-25 08:33] VITALS: BMI 49.3
[2022-06-19 16:57] LABS: PSA,Total- Diagnostic < 0.01 ng/mL (0.0-4.0)
== END | disposition home or self-care (01) ==
PROVIDERS: PCP Family Medicine; Referring Provider Urology; Visit Provider Urology
DX: C61 Malignant neoplasm of prostate (principal)
CPT/HCPCS: 36415; 84153

== ENCOUNTER → 2022-06-19 | Outpatient (CLI) | payer OTHER, SELFPAY ==
[2020-11-25 08:33] VITALS: BMI 49.3
--- NOTE | 2022-06-19 15:47 | VDLE_ITS ---
Reason For Study: Swelling RIGHT LEFT CFV is compressible, spontaneous, phasic, GSV is normal. competent and demonstrates normal Acute deep vein thrombosis is noted in the augmentation. CFV, FV, PopV, T/P Trunk, PTV and PeroV. Procedure This is a venous duplex using B-mode, color flow and spectral Doppler. Exam performed in department. A preliminary report was called and/or faxed to [facility]. VL/Venous Duplex US, Unilateral Interpretation Summary Acute deep venous thrombosis left common femoral, femoral, popliteal, tibialper jj trunk, posterior tibial and peroneal veins. Patent, compressible left great saphenous vein Normal flow patterns right common femoral vein. Ordering Physician: [facility] Majano Referring Physician: Sunny Bell M.D. Performed By: Shonda Garrison RVT
== END | disposition home or self-care (01) ==
LOC: CVS 15:47
PROVIDERS: PCP Family Medicine; Referring Provider Nurse Practitioner Family; Visit Provider Nurse Practitioner Family
DX: M79.89 Other specified soft tissue disorders (principal)
CPT/HCPCS: 93971

== ENCOUNTER → 2022-07-03 | Outpatient (CLI) | payer OTHER, SELFPAY ==
[2020-11-25 08:33] VITALS: BMI 49.3
--- NOTE | 2022-07-03 06:44 | CT_ITS ---
STUDY: CT ABDOMEN AND PELVIS WITH CONTRAST REASON FOR EXAM: Male, 61 years old. Acute LLE DVT RADIATION DOSAGE (If Supplied By Facility): CTDIvol = ( 20.40 ) mGy, DLP = ( 1517.10 ) mGycm TECHNIQUE: Transaxial images were obtained from the dome of the diaphragm to the symphysis pubis with oral contrast. ; IV 100mL [id number]-[id number] was administered. Sagittal and coronal images were reconstructed. Individualized dose optimization techniques were used for this CT. COMPARISON: July 12, 2020 FINDINGS: The visualized lung bases are unremarkable. There are sternotomy wires. There are coronary artery calcifications There is hepatomegaly with diffuse hepatic enlargement. There is a solitary gallstone. Normal spleen. Normal pancreas. Normal bilateral adrenal glands. Normal right kidney. Normal left kidney. Normal visualized stomach. Normal small intestine. Normal colon. The appendix is visualized and appears normal. There is diffuse atherosclerotic calcification of the abdominal aorta, without a demonstrated aneurysm. Normal inferior vena cava. Normal retroperitoneum. Normal urinary bladder. There are metallic densities in the prostate gland. There is no free fluid in the abdomen or pelvis. Normal abdominal wall. There are diffuse degenerative changes of the visualized lumbar spine. There is grade 1 spondylolisthesis at L4-5. There is filling defect of the left common femoral vein consistent with thrombosis. CT/Abdomen/Pelvis WITH Contrast IMPRESSION: Gallstone. Hepatomegaly. No biliary dilatation. No obstruction. Left lower extremity deep venous thrombosis. Electronically Signed: Rayo Marie MD at 9:34 EST ,
[2022-07-03 09:06] LABS: CREATININE FINGERSTICK < 0.9 mg/dL (0.70-1.30); EGFR FINGERSTICK > 60.0000 mL/min (>60)
== END | disposition home or self-care (01) ==
PROVIDERS: PCP Family Medicine; Visit Provider Nurse Practitioner Family
DX: M79.89 Other specified soft tissue disorders (principal); I82.402 Acute embolism and thrombosis of unspecified deep veins of left lower extremity; C61 Malignant neoplasm of prostate
CPT/HCPCS: 74177; Q9967

== ENCOUNTER → 2022-10-09 | Outpatient (CLI) | payer OTHER, SELFPAY ==
[2020-11-25 08:33] VITALS: BMI 49.3
[2022-10-09 12:42] LABS: Anion Gap 8 (5-15); BUN 21 mg/dL (7-18); BUN/Creat Ratio 27.7 RATIO (10-20); Calcium,Total 9.2 mg/dL (8.5-10.1); Chloride 103 mmol/L (98-107); Creatinine, Serum 0.76 mg/dL (0.70-1.30); EST Glomerular Filtration Rate 111 mL/min (>60); Est Glom Filt Rate - Afr Amer 135 mL/min (>60); Glucose 106 mg/dL (74-106); Potassium 4.1 mmol/L (3.5-5.1); Sodium Level 140 mmol/L (136-145)
== END | disposition home or self-care (01) ==
LOC: BIMLAB 07:58
PROVIDERS: PCP Family Medicine; Referring Provider Nurse Practitioner Family; Visit Provider Nurse Practitioner Family
DX: E87.6 Hypokalemia (principal)
CPT/HCPCS: 36415; 80048

== ENCOUNTER → 2022-12-22 | Outpatient (CLI) | payer OTHER, SELFPAY ==
[2020-11-25 08:33] VITALS: BMI 49.3
[2022-12-22 13:07] LABS: PSA,Total- Diagnostic < 0.01 ng/mL (0.0-4.0)
== END | disposition home or self-care (01) ==
PROVIDERS: Urology; PCP Family Medicine; Visit Provider Registered Nurse
DX: C61 Malignant neoplasm of prostate (principal)
CPT/HCPCS: 36415; 84153

== ENCOUNTER → 2023-01-13 | Outpatient (CLI) | payer OTHER, SELFPAY ==
[2020-11-25 08:33] VITALS: BMI 49.3
[2023-01-13 14:25] LABS: Microalbumin,Random Urine 11.1 mg/L (NO RANGE EST.)
[2023-01-13 14:29] LABS: Anion Gap 6 (5-15); BUN 18 mg/dL (7-18); BUN/Creat Ratio 25.2 RATIO (10-20); Calcium,Total 9.3 mg/dL (8.5-10.1); Chloride 106 mmol/L (98-107); Cholesterol 130 mg/dL (200); Creatinine, Serum 0.72 mg/dL (0.70-1.30); EST Glomerular Filtration Rate 119 mL/min (>60); Est Glom Filt Rate - Afr Amer 144 mL/min (>60); Glucose 92 mg/dL (74-106); High Density Lipoprotein 42 mg/dL; Potassium 3.6 mmol/L (3.5-5.1); Sodium Level 139 mmol/L (136-145); Thyroid Stim Hormone (TSH) 1.57 uIU/mL (0.358-3.74); Triglycerides 69 mg/dL; Very Low Density Lipoprotein 14 mg/dL (5-40)
[2023-01-13 15:43] LABS: Hemoglobin A1c 5.5 % (3.8-5.6)
== END | disposition home or self-care (01) ==
LOC: BIMLAB 10:22
PROVIDERS: PCP Family Medicine; Visit Provider Nurse Practitioner Family
DX: E87.6 Hypokalemia (principal); E11.9 Type 2 diabetes mellitus without complications; E78.5 Hyperlipidemia, unspecified
CPT/HCPCS: 36415; 80048; 80061; 82043; 82570; 83036; 84443

== ENCOUNTER 2023-06-04 06:23 | Day surgery (SDC) | payer OTHER, SELFPAY ==
[2020-11-25 08:33] VITALS: BMI 49.3
[2023-06-04 06:52] VITALS: BP 133/76; PULSE 74; RESP 16; TEMP 36.2; O2SAT 96; BMI 43.2
[2023-06-04] MEDS: Lactated Ringers 1,000 ML 15 ML IV (06:57)
[2023-06-04 07:14] LABS: Bedside Glucose 89 mg/dL (74-106)
--- NOTE | 2023-06-04 07:43 | PCM.HP.BLA ---
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 Is patient in pain?: No Allergies No Known Allergies Allergy (Verified 04/29/23 08:05) Medications nitroglycerin 0.4 mg sublingual tablet 0.4 mg sublingual Q5-15M PRN Cardiac/Chest Pain 05/31/18 [History Confirmed 04/29/23] blood sugar diagnostic (FreeStyle Test strips) #50 ea 04/25/21 [Rx Confirmed 04/29/23] blood-glucose meter (FreeStyle System Kit) #1 ea 04/25/21 [Rx Confirmed 04/29/23] lancets 28 gauge (FreeStyle Lancets) #50 ea 04/25/21 [Rx Confirmed 04/29/23] apixaban 5 mg tablet (Eliquis) See Rx Instructions .Route .COMPLEX #180 tabs 12/04/22 [Rx Confirmed 04/29/23] ezetimibe 10 mg tablet 10 mg PO DAILY #90 tabs 12/04/22 [Rx Confirmed 04/29/23] hydrochlorothiazide 25 mg tablet See Rx Instructions .Route .COMPLEX #90 tabs 12/04/22 [Rx Confirmed 04/29/23] isosorbide mononitrate 60 mg tablet,extended release 24 hr See Rx Instructions PO BID #90 tabs 12/04/22 [Rx Confirmed 04/29/23] levothyroxine 50 mcg tablet See Rx Instructions .Route .COMPLEX #90 tabs 12/04/22 [Rx Confirmed 04/29/23] prasugrel 10 mg tablet See Rx Instructions .Route .COMPLEX #90 TABLETS 12/04/22 [Rx Confirmed 04/29/23] metoprolol succinate 25 mg tablet,extended release 24 hr See Rx Instructions .Route .COMPLEX #90 tabs 12/24/22 [Rx Confirmed 04/29/23] clobetasol 0.05 % topical ointment 15 g topical BID PRN Itching #60 grams 01/13/23 [Rx Confirmed 04/29/23] empagliflozin 25 mg tablet (Jardiance) 25 mg PO DAILY 04/20/23 [History Confirmed 04/29/23] PFSH Medical History (Updated 04/29/23 @ 08:01 by Coty Lamb) Atherosclerosis of coronary artery without angina pectoris Blood in stool Deep vein thrombosis of left lower extremity Essential hypertension History of COVID-19 Hyperlipidemia Hypokalemia Hypothyroid Hypothyroidism Ischemic cardiomyopathy Morbid obesity Old inferior wall myocardial infarction Prostate cancer Psoriasis Seasonal allergies Swelling of left lower extremity Type 2 diabetes mellitus Surgical History H/O coronary artery bypass surgery (05/04/11) History of cardiac cath History of coronary artery stent placement (10/26/14) History of left heart catheterization (11/21/20) History of open heart surgery Family History Mother Colon cancer Heart disease HypertensionFather Prostate cancer High cholesterol CVA (cerebral vascular accident) Social History Smoking Status: Never smoker alcohol intake: never substance use type: does not use what type of physical activity do you participate in: none HPI HPI HPI: Patient is a 62-year-old male here for intermittent rectal bleeding. He says this happens every now and then but when it does happen it is bright red. He does not have any pain when this happens. He has last colonoscopy in 2019 which was normal. He was sent here for colonoscopy to evaluate the rectal bleeding. ROS General General: Yes weight change; No appetite, fatigue, colon cancer, breast cancer or weakness HEENT HEENT: No difficulty swallowing, eye injury, eye surgery, swollen glands or hoarseness Endo Endocrine: Yes thyroid disease and diabetes mellitus; No thyroid cancer, Hair loss, heat intolerance or cold intolerance Skin Skin: Yes rash; No changing moles Breast Breast: No left breast lump, right breast lump, nipple discharge, breast pain, abnormal mammogram, abnormal US or breast enlargement Musc Musculoskeletal: Yes back problems; No arthritis, rheumatoid arthritis, gout or joint pain Cardio Cardiovascular: Yes heart disease, high blood pressure and heart stent; No murmur, pacemaker, atrial fibrillation, heart attack, palpitations, shortness of breat with exertion or chest pain Psych Psychiatric: No depression, anxiety or hearing voices Resp Respiratory: No shortness of breath, Yes sleep apnea, No cough, No COPD, No asthma, No emphysema and No wheezing Gastro Gastrointestinal: No abdominal pain, No nausea or vomiting, No diarrhea, No constipation, Yes blood in stool, No acid reflux, Yes hemorrhoids, No ulcers, No gallbladder problem and No black,tarry stools Javon Hematologic: Yes blood thinners, No blood disorders, No bleeding, No anemia and Yes blood clots Neuro Neurologic: No system reviewed and no additional complaints, except as documented, No as per HPI, No abnormal gait, No abnormal hearing, No abnormal movements, No abnormal speech, No behavioral changes, No burning sensations, No confusion, No convulsions, No disequilibrium, No dizziness, No localized weakness, No frequent falls, No headache(s), No lack of coordination, No loss of vision, No memory loss, No numbness, No other visual disturbances, No radicular pain, No restless legs, No sensory deficit, No syncope, No tingling, No tremor(s), No weakness and No other Exam Const General: cooperative Orientation: alert and oriented x3 [facility] Head: normal to inspection Neck Neck: normal visual inspection and full ROM Chest Chest palpation & inspection: normal inspection of the chest Resp Effort & Inspection: normal respiratory effort Auscultation: clear to auscultation bilaterally Cardio Rate: regular rate Rhythm: regular rhythm GI Inspection: non-distended Palpation: soft and nontender Skin General: no rashes or lesions noted Neuro General: patient alert and patient oriented x3 Extrem General: full ROM Psych Appearance: grossly normal Mental Status: mental status grossly normal Assessment and Plan Assessment and Plan (1) Rectal bleeding: Status: Acute Comment: Colonoscopy was negative in 2020. Plan: Patient is having rectal bleeding and oncology sending her here for repeat colonoscopy. He has had a history of pelvic radiation for prostate cancer. He is also on Brilinta and Effient. I will ask Dr. Go if he can stop his blood thinners temporarily for surgery. I explained endoscopy in detail to the patient. I explained the risks including but not limited to stroke or heart attack with anesthesia, perforation of the GI tract, bleeding, infection. I explained that any of these could necessitate further emergency surgery. The patient understands and all questions were answered sufficiently. The patient wishes to proceed with procedure. Last Grijalva MD Pager: [facility] [address] [place] [address], [address] [place] [phone] Office: I have examined the patient and the H&P has been reviewed. There are no clinical changes since date of exam.
[2023-06-04 08:12] VITALS: BP 133/76; BP 96/62; PULSE 60; RESP 16; TEMP 36.7; O2SAT 95
[2023-06-04 08:20] VITALS: BP 133/76; BP 98/71; PULSE 59; RESP 16; O2SAT 97
--- NOTE | 2023-06-04 08:20 | OP.CCLET_ITS ---
06/04/2023 Shai Bell Re : Colonoscopy procedure for Ba Tompkins Dear Dr. Bell This procedure was performed on Sunday, June 04, 2023. My impressions and recommendations are as follows: Impressions : - The entire examined colon is normal on direct and retroflexion views. - No specimens collected. Recommendations : - Discharge patient to home. - Resume previous diet. - Continue present medications. - Repeat colonoscopy in 10 years for screening purposes. My findings are described in the full procedure note, which is enclosed. If I can be of further assistance, please feel free to contact me at Doctor phone number(s): , Work: . Sincerely, Last Grijalva MD 06/04/2023 8:20:29 AM This report has been signed electronically.
--- NOTE | 2023-06-04 08:20 | OP.COLON_ITS ---
Patient Name: Ba Tompkins Procedure Date: 06/04/2023 7:53 AM Date of : 1960 Age: 62 Procedure: Colonoscopy Indications: Rectal bleeding Providers: Last Grijalva MD Medicines: Monitored Anesthesia Care Patient Profile: This is a 62 year old male. Refer to note in patient chart for documentation of history and physical. Last Colonoscopy: more than 3 years ago. Complications: No immediate complications. Procedure: Pre-Anesthesia Assessment: - Prior to the procedure, a History and Physical was performed, and patient medications and allergies were reviewed. The patient's tolerance of previous anesthesia was also reviewed. The risks and benefits of the procedure and the sedation options and risks were discussed with the patient. All questions were answered, and informed consent was obtained. Prior Anticoagulants: The patient has taken Eliquis (apixaban), last dose was 3 days prior to procedure. After reviewing the risks and benefits, the patient was deemed in satisfactory condition to undergo the procedure. After I obtained informed consent, the scope was passed under direct vision. Throughout the procedure, the patient's blood pressure, pulse, and oxygen saturations were monitored continuously. The pediatric colonoscope was introduced through the anus and advanced to the cecum, identified by appendiceal orifice and ileocecal valve. The colonoscopy was performed without difficulty. The patient tolerated the procedure well. The quality of the bowel preparation was good. The ileocecal valve, appendiceal orifice, and rectum were photographed. Scope In: 7:55:28 AM Scope Withdrawal Time 0 hours 4 minutes 27 seconds Scope Out: 8:06:37 AM Total Procedure Duration Time 0 hours 11 minutes 9 seconds Findings: The entire examined colon appeared normal on direct and retroflexion views. Impression: - The entire examined colon is normal on direct and retroflexion views. - No specimens collected. Recommendation: - Discharge patient to home. - Resume previous diet. - Continue present medications. - Repeat colonoscopy in 10 years for screening purposes. Procedure Code(s): --- Professional --- 94792, Colonoscopy, flexible; diagnostic, including collection of specimen(s) by brushing or washing, when performed (separate procedure) Diagnosis Code(s): --- Professional --- K62.5, Hemorrhage of anus and rectum CPT copyright 2021 [employer]. All rights reserved. The codes documented in this report are preliminary and upon nuisance wildlife control operator review may be revised to meet current compliance requirements. Last Grijalva MD 06/04/2023 8:20:29 AM This report has been signed electronically. Number of Addenda: 0 Note Initiated On: 06/04/2023 7:53 AM
[2023-06-04 08:24] VITALS: BP 100/67; BP 133/76; PULSE 58; RESP 18; O2SAT 94
[2023-06-04 08:29] VITALS: BP 118/91; BP 133/76; PULSE 60; RESP 18; TEMP 36.6; O2SAT 97
[2023-06-04 08:45] VITALS: BP 133/76
== END 2023-06-04 08:55 | disposition home or self-care (01) ==
LOC: EN 06:23 → AC 06:24
PROVIDERS: PCP Family Medicine; Referring Provider Family Medicine; Visit Provider Surgery
PROC: 0DJD8ZZ Inspection of Lower Intestinal Tract, Via Natural or Artificial Opening Endoscopic (ICD-10-PCS; CPT 45378; principal; 2023-06-04 07:55)
DX: K62.5 Hemorrhage of anus and rectum (principal); E66.01 Morbid (severe) obesity due to excess calories; E11.9 Type 2 diabetes mellitus without complications; I25.10 Atherosclerotic heart disease of native coronary artery without angina pectoris; I10 Essential (primary) hypertension; I25.5 Ischemic cardiomyopathy; E03.9 Hypothyroidism, unspecified; K76.0 Fatty (change of) liver, not elsewhere classified; Z79.01 Long term (current) use of anticoagulants; Z79.899 Other long term (current) drug therapy; Z86.718 Personal history of other venous thrombosis and embolism; Z86.16 Personal history of COVID-19; Z95.1 Presence of aortocoronary bypass graft; Z95.5 Presence of coronary angioplasty implant and graft
CPT/HCPCS: 45378; 82962; J7120; J2405

== ENCOUNTER → 2023-07-27 | Outpatient (CLI) | payer OTHER, SELFPAY ==
[2020-11-25 08:33] VITALS: BMI 49.3
[2023-07-27 12:41] LABS: Anion Gap 7 (5-15); BUN 18 mg/dL (7-18); BUN/Creat Ratio 19.4 RATIO (10-20); Calcium,Total 8.7 mg/dL (8.5-10.1); Chloride 104 mmol/L (98-107); Creatinine, Serum 0.93 mg/dL (0.70-1.30); EST Glomerular Filtration Rate 88 mL/min (>60); Est Glom Filt Rate - Afr Amer 106 mL/min (>60); Glucose 126 mg/dL (74-106); PSA,Total - Annual Screen < 0.01 ng/mL (0.00-4.00); Potassium 3.9 mmol/L (3.5-5.1); Sodium Level 141 mmol/L (136-145); Thyroid Stim Hormone (TSH) 1.65 uIU/mL (0.358-3.74)
== END | disposition home or self-care (01) ==
LOC: BIMLAB 09:05
PROVIDERS: PCP Family Medicine; Referring Provider Family Medicine; Visit Provider Family Medicine
DX: C61 Malignant neoplasm of prostate (principal); E03.9 Hypothyroidism, unspecified
CPT/HCPCS: 36415; 80048; 84153; 84443; G0103

== ENCOUNTER → 2024-06-27 | Outpatient (CLI) | payer OTHER, SELFPAY ==
[2024-01-05 08:32] VITALS: BMI 49.3
[2024-06-27 09:41] LABS: Bacteria 0 SEEN /hpf (None Seen); Red Blood Cells-Urine 0 SEEN /hpf (0-5); White Blood Cells 0 SEEN /hpf (0-5)
[2024-06-27 12:02] LABS: Color, Urine Yellow (Yellow); Glucose, Dipstick 1000 mg/dl (Normal); Ketone-Dipstick Negative (Negative); Leukocyte Esterase-Dipstick Negative /ul (Negative); Nitrite-Dipstick Negative (Negative); Occult Blood-Urine Negative /ul (Negative); Protein-Dipstick Negative (Negative); Urine Bilirubin Dipstick Negative (Negative); Urine Clarity Clear (Clear); Urine Urobilinogen Normal (Normal)
[2024-06-27 12:22] LABS: ALB/GLOB Ratio 1.1 RATIO (0.9-2.4); AST(SGOT) 29 U/L (15-37); Alanine Aminotransfer ALT/SGPT 34 U/L (16-61); Albumin, Serum 3.8 g/dL (3.2-5.0); Alkaline Phosphatase 75 U/L (45-117); Anion Gap 8 (5-15); BUN 21 mg/dL (7-18); BUN/Creat Ratio 25.7 RATIO (10-20); Chloride 107 mmol/L (98-107); Cholesterol 137 mg/dL (200); Creatinine, Serum 0.82 mg/dL (0.70-1.30); EST Glomerular Filtration Rate 102 mL/min (>60); Est Glom Filt Rate - Afr Amer 123 mL/min (>60); Globulin 3.5 g/dL (2.2-4.2); Glucose 139 mg/dL (74-106); High Density Lipoprotein 45 mg/dL; Potassium 3.3 mmol/L (3.5-5.1); Protein, Total 7.3 g/dL (6.4-8.2); Sodium Level 141 mmol/L (136-145); Triglycerides 129 mg/dL; Very Low Density Lipoprotein 26 mg/dL (5-40)
[2024-06-27 12:35] LABS: Squamous Epithelial Cells - UA 0-5 SEEN /hpf (0-5)
[2024-06-27 12:36] LABS: Mucous, Urine 1+ /hpf (<or=2+)
[2024-06-27 12:58] LABS: Hemoglobin A1c 6.2 % (3.8-5.6)
== END | disposition home or self-care (01) ==
LOC: BIMLAB 09:39
PROVIDERS: PCP Family Medicine; Visit Provider Family Medicine
DX: E11.9 Type 2 diabetes mellitus without complications (principal); R30.0 Dysuria; E87.6 Hypokalemia
CPT/HCPCS: 36415; 80053; 80061; 81001; 83036

== ENCOUNTER → 2024-12-26 | Outpatient (CLI) | payer BC, SELFPAY ==
[2024-01-05 08:32] VITALS: BMI 49.3
[2024-12-26 13:00] LABS: Anion Gap 11 (5-15); BUN 17 mg/dL (4-19); BUN/Creat Ratio 25.6 RATIO (10-20); Calcium,Total 9.2 mg/dL (7.6-11.0); Carbon Dioxide 25.2 mmol/L (21.0-32.0); Chloride 104 mmol/L (98-108); Creatinine, Serum 0.66 mg/dL (0.70-1.20); EST Glomerular Filtration Rate 105 (>60); Glucose 100 mg/dL (70-99); Potassium 3.9 mmol/L (3.3-5.1); Sodium Level 140 mmol/L (133-145)
== END | disposition home or self-care (01) ==
LOC: BIMLAB 08:56
PROVIDERS: PCP Family Medicine; Referring Provider Family Medicine; Visit Provider Family Medicine
DX: E87.6 Hypokalemia (principal); E03.9 Hypothyroidism, unspecified
CPT/HCPCS: 36415; 80048; 84439; 84443